=== PATIENT | female | born 1950 | race Caucasian/White ===

== ENCOUNTER 2017-03-12 19:58 | Emergency (ER) | payer BC, OTHER ==
[~2017-03-12] VITALS: Ht 167.6 cm; Wt 73.2 kg
[~2017-03-12 19:58] MED LIST: ADVAI500I PO; ALBU8I INH; AZIT250T74 PO; BENZ100 PO; DIAZ2 PO; FLUC150T PO; METO100 PO; NYST100010 PO; PRED20 PO; ROBIDMS PO; TRAM50 PO
[2017-03-12 20:23] VITALS: BP 163/83; PULSE 93; RESP 20; TEMP 98.7; O2SAT 97
[2017-03-12] MEDS ORDERED: SODIUM CHLOR 0.9% 1000 ML INJ 1,000 ML IV SCH (20:27)
[2017-03-12 20:30] VITALS: BP 89/57; PULSE 78; RESP 14; O2SAT 98
[2017-03-12] MEDS ORDERED: methylPREDNISolone SOD SUCC 125 MG/2 ML VIAL IV PUSH ONE (20:30)
[2017-03-12] MEDS ORDERED: EPINEPHrine HCL (1:1000) 1 MG/ML VIAL IM ONE (20:30)
[2017-03-12] MEDS ORDERED: SODIUM CHLORIDE 0.9% FLUSH 10 ML FLUSH IV FLUSH PRN (20:30)
--- NOTE | 2017-03-12 20:33 | PD ---
HPI Chief Complaint: Respiratory Symptoms Time Seen by Provider: 20:21 Travel History International Travel<30 days: No Contact w/Intl Traveler<30days: No Traveled to known affect area: No History of Present Illness HPI The patient is a 66-year-old female that complains complains of wheezing for one week. Last night she started having an intermittent sharp chest pain that felt like there was a pill in her throat. This morning she noticed a generalized pruritic rash over her arms and legs. The patient does have a history of asthma. She does have allergy to penicillin. The patient does have a history of PAT but apparently has no other cardiac history. PFSH Past Medical History Hx Anticoagulant Therapy: Yes (ASA 325MG DAILY) Arthritis: No Asthma: Yes Autoimmune Disease: No Blood Disorders: No Anxiety: Yes Depression: No Heart Rhythm Problems: Yes (PALPITATION, ARRHYTHMIA,SVT) Cancer: Yes (skin ca in 1994) Cardiovascular Problems: Yes High Cholesterol: Yes Chemotherapy: No Chest Pain: No Congestive Heart Failure: No COPD: No Cerebrovascular Accident: No Diabetes: No Diminished Hearing: No Endocrine: No GERD: No Genitourinary: No Hiatal Hernia: No Immune Disorder: No Kidney Stones: Yes (1999) Musculoskeletal: Yes ( MUNA. WRISTS WEAKNESS) Neurologic: No Psychiatric: No Reproductive: Yes (INFERTILITY) Respiratory: Yes Migraines: Yes Radiation Therapy: No Renal Failure: No Seizures: No Sickle Cell Disease: No Sleep Apnea: No Thyroid Disease: No Ulcer: No ?: Not LMP: 2006 Menopausal: Yes Past Surgical History Abdominal Surgery: No AICD: No Arteriovenous Shunt: No Cardiac Surgery: No Ear Surgery: No Endocrine Surgery: No Eye Surgery: No Genitourinary Surgery: No Gynecologic Surgery: No Insulin Pump: No Joint Replacement: No Oral Surgery: No Pacemaker: No Thoracic Surgery: No Other Surgery: Yes (FACE-COSMETIC) Social History Alcohol Use: Yes (1 BEER OR GLASS OF WINE DAILY) Tobacco Use: No Substance Use: No Allergies-Medications (Allergen,Severity, Reaction): Coded Allergies: ibuprofen (Verified Allergy, Severe, ANXIOUS/VIOLENT, 03/12/17) penicillin G (Verified Allergy, Severe, HIVES, 03/12/17) codeine (Verified Adverse Reaction, Severe, VOMITS, 03/12/17) Reported Meds & Prescriptions Reported Meds & Active Scripts Active Prednisone 50 Mg Tab 50 Mg PO BID Reported Prednisone 20 Mg Tab 20 Mg PO DAILY Valtrex (Valacyclovir HCl) 500 Mg Tab 500 Mg PO DAILY Valium (Diazepam) 5 Mg Tab 5 Mg PO HS PRN Ventolin Hfa 18 GM Inh (Albuterol Sulfate) 90 Mcg/Act Aer 1 Puff INH Q4H PRN Metoprolol Succinate ER 24 HR (Metoprolol Succinate) 200 Mg Tab 200 Mg PO DAILY Review of Systems Except as stated in HPI: all other systems reviewed are Neg Physical Exam Narrative GENERAL: The patient is alert, oriented 3 and slight apparent distress with her pruritic rash. SKIN: Focused skin assessment warm/dry. The patient has swelling in the hands as well as an erythematous rash on the arms and legs and trunk. HEAD: Atraumatic. Normocephalic. EYES: Pupils equal and round. No scleral icterus. No injection or drainage. ENT: No nasal bleeding or discharge. Mucous membranes pink and moist. NECK: Trachea midline. No JVD. CARDIOVASCULAR: Regular rate and rhythm. No murmur appreciated. RESPIRATORY: No accessory muscle use. Lungs show bilateral wheezes widely scattered. Breath sounds equal bilaterally. GASTROINTESTINAL: Abdomen soft, non-tender, nondistended. Hepatic and splenic margins not palpable. MUSCULOSKELETAL: No obvious deformities. No clubbing. No cyanosis. No edema. NEUROLOGICAL: Awake and alert. No obvious cranial nerve deficits. Motor grossly within normal limits. Normal speech. PSYCHIATRIC: Appropriate mood and affect; insight and judgment normal. Data Data Last Documented VS Vital Signs Date Time Temp Pulse Resp B/P (MAP) Pulse Ox O2 Delivery O2 Flow Rate FiO2 03/12/17 22:37 98 15 137/78 (97) 97 Room Air 03/12/17 20:35 2.00 03/12/17 20:23 98.7 Orders Orders Basic Metabolic Panel (Bmp) (03/12/17 20:27) Complete Blood Count With Diff (03/12/17 20:27) Ecg Monitoring (03/12/17 20:27) Iv Access Insert/Monitor (03/12/17 20:27) Oximetry (03/12/17 20:27) Methylprednisolone So Succ Inj (Solumedr (03/12/17 20:30) Albuterol-Ipratropium Neb (Duoneb Neb) (03/12/17 20:30) Sodium Chlor 0.9% 1000 Ml Inj (Ns 1000 M (03/12/17 20:27) Sodium Chloride 0.9% Flush (Ns Flush) (03/12/17 20:30) Troponin I (03/12/17 20:27) Epinephrine (1:1000) Inj (Adrenalin (1:1 (03/12/17 20:30) Electrocardiogram (03/12/17 20:09) Ct Thorax/ Chest Wo Iv Contras (03/12/17 21:40) Diphenhydramine Inj (Benadryl Inj) (03/12/17 22:45) Labs Laboratory Tests Test 03/12/17 20:15 White Blood Count 7.7 TH/MM3 Red Blood Count 4.34 MIL/MM3 Hemoglobin 14.4 GM/DL Hematocrit 41.1 % Mean Corpuscular Volume 94.7 FL Mean Corpuscular Hemoglobin 33.1 PG Mean Corpuscular Hemoglobin Concent 35.0 % Red Cell Distribution Width 12.1 % Platelet Count 234 TH/MM3 Mean Platelet Volume 9.6 FL Neutrophils (%) (Auto) 56.8 % Lymphocytes (%) (Auto) 31.6 % Monocytes (%) (Auto) 5.6 % Eosinophils (%) (Auto) 5.0 % Basophils (%) (Auto) 1.0 % Neutrophils # (Auto) 4.4 TH/MM3 Lymphocytes # (Auto) 2.4 TH/MM3 Monocytes # (Auto) 0.4 TH/MM3 Eosinophils # (Auto) 0.4 TH/MM3 Basophils # (Auto) 0.1 TH/MM3 CBC Comment DIFF FINAL Differential Comment Blood Urea Nitrogen 14 MG/DL Creatinine 0.74 MG/DL Random Glucose 91 MG/DL Calcium Level 8.8 MG/DL Sodium Level 139 MEQ/L Potassium Level 3.6 MEQ/L Chloride Level 106 MEQ/L Carbon Dioxide Level 25.4 MEQ/L Anion Gap 8 MEQ/L Estimat Glomerular Filtration Rate 79 ML/MIN Troponin I LESS THAN 0.02 NG/ML MDM Medical Decision Making Medical Screen Exam Complete: Yes Emergency Medical Condition: Yes Medical Record Reviewed: Yes Interpretation(s) The basic metabolic profile is normal except for a GFR of 79. The troponin I is normal. Differential Diagnosis Allergic reaction, acute asthma, atypical chest pain: Acute coronary syndrome- highly unlikely, electrolyte disorder, atypical chest pain, chest pain etiology undetermined Narrative Course The patient appears to have an allergic reaction. She did not want an epinephrine shot because it hurt for 6 weeks after her last epinephrine shot. She will be given a tapered course of prednisone over 8 days. It is now 9:38 PM and the patient wants a CAT scan to find out what is the cause of her chest pain. She does not have the chest pain now. The DuoNeb treatments help the wheezing and she no longer has wheezing. Diagnosis Primary Impression: Allergic reaction Additional Instructions: As we discussed, the prednisone is one tablet twice daily for 4 days followed by one tablet once daily for 4 days. Follow-up with your primary care physician. Med/Other Pt SpecificInfo: Prescription(s) given Scripts Prednisone (Prednisone) 50 Mg Tab 50 MG PO BID for X 4 days than 1 daily X 4 days, #12 TAB 0 Refills Prov: Wali Garza MD 03/12/17 Disposition: 01 DISCHARGE HOME Condition: Stable Wali Garza MD Mar 12, 2017 20:33
[2017-03-12] MEDS: RESP: ALBUTEROL 2.5 MG/IPRATROPIUM 0.5 MG NEB (SCH) INH ×3 (20:38→20:53)
[2017-03-12 21:00] LABS: AUTOMATED NEUTROPHIL # 4.4 TH/MM3 (1.8-7.7); BASOPHIL # 0.1 TH/MM3 (0-0.2); EOSINOPHIL # 0.4 TH/MM3 (0-0.4); HEMATOCRIT 41.1 % (35.0-46.0); HEMO FLAGS DIFF FINAL; LYMPH % 31.6 % (9.0-44.0); LYMPHOCYTE # 2.4 TH/MM3 (1.0-4.8); MEAN CELL VOLUME 94.7 FL (80.0-100.0); MEAN CORPUSCULAR HEMOGLOBIN 33.1 PG (27.0-34.0); MONO % 5.6 % (0.0-8.0); NEUT % 56.8 % (16.0-70.0); PLATELET COUNT 234 TH/MM3 (150-450); RED BLOOD COUNT 4.34 MIL/MM3 (4.00-5.30); RED CELL DISTRIBUTION WIDTH 12.1 % (11.6-17.2); WHITE BLOOD COUNT 7.7 TH/MM3 (4.0-11.0)
[2017-03-12 21:08] LABS: CHLORIDE 106 MEQ/L (98-107); POTASSIUM 3.6 MEQ/L (3.5-5.1); SODIUM (NA) 139 MEQ/L (136-145)
[2017-03-12 21:12] LABS: ANION GAP 8 MEQ/L (5-15); BICARBONATE 25.4 MEQ/L (21.0-32.0); BLOOD UREA NITROGEN 14 MG/DL (7-18)
[2017-03-12 21:15] LABS: GLOMERULAR FILTRATION RATE 79 ML/MIN (>89)
[2017-03-12] MEDS ORDERED: PRED20 PO (21:37)
[2017-03-12] MEDS ORDERED: VENTAER INH (21:37)
[2017-03-12] MEDS ORDERED: DIAZ5 PO (21:37)
[2017-03-12] MEDS ORDERED: METO200T3 PO (21:37)
[2017-03-12] MEDS ORDERED: VALT500T PO (21:37)
--- NOTE | 2017-03-12 22:36 | RADRPT ---
EXAM DATE/TIME: 03/12/2017 22:02 [facility] COMPARISON: No previous studies available for comparison. INDICATIONS : Chest pain. Short of breath. Rash. RADIATION DOSE: 7.46 CTDIvol (mGy) MEDICAL HISTORY : Asthma SURGICAL HISTORY : None. ENCOUNTER: Initial ACUITY: 1 day PAIN SCALE: 7/10 LOCATION: chest TECHNIQUE: Volumetric scanning of the chest was performed. Using automated exposure control and adjustment of t he mA and/or kV according to patient size, radiation dose was kept as low as reasonably achievable to obtain optimal diagnostic quality images. DICOM format image data is available electronically for r eview and comparison. Follow-up recommendations for detected pulmonary nodules are based at a minimum on nodule size and pa tient risk factors according to Fleischner Society Guidelines. FINDINGS: There is minimal dependent atelectasis in the lungs and basilar scarring. Calcified granuloma right l ower lobe. No lung consolidation. No pleural pericardial effusion. Mild coronary calcifications. Calcified right-sided hilar lymph node s. No acute bony abnormalities. CONCLUSION: 1. Minimal dependent atelectasis in the lungs. Remote granulomas disease. No acute findings. Mild cor onary calcifications. Tye Brooks MD on March 12, 2017 at 22:31 Board Certified Radiologist. This report was verified electronically.
[2017-03-12 22:37] VITALS: BP 137/78; PULSE 98; RESP 15; O2SAT 97
[2017-03-12] MEDS ORDERED: diphenhydrAMINE HCL 50 MG/ML VIAL IV PUSH ONE (22:45)
[2017-03-12] MEDS ORDERED: PRED50 PO (22:52)
[2017-03-12 23:06] VITALS: BP 137/78
--- NOTE | 2017-03-13 13:28 | EKG ---
Date Performed: 03/12/2017 Time Performed: 20:09:00 PTAGE: 66 years EKG: Sinus rhythm POSSIBLE LEFT ATRIAL ENLARGEMENT BORDERLINE ECG INTERPRETATION BASED ON A DEFAULT AGE OF 40 YEARS NO PREVIOUS TRACING DOCTOR: Stacy Edwards Interpretating Date/Time 03/13/2017 13:27:38
== END 2017-03-12 23:16 | disposition home or self-care (01) ==
LOC: PHED 19:58
DX: T78.40XA Allergy, unspecified, initial encounter (principal); R06.2 Wheezing; R07.9 Chest pain, unspecified; R21 Rash and other nonspecific skin eruption; L29.9 Pruritus, unspecified; R94.31 Abnormal electrocardiogram [ECG] [EKG]; E78.00 Pure hypercholesterolemia, unspecified; X58.XXXA Exposure to other specified factors, initial encounter; Z79.82 Long term (current) use of aspirin; Z87.09 Personal history of other diseases of the respiratory system; Z86.59 Personal history of other mental and behavioral disorders; Z86.79 Personal history of other diseases of the circulatory system; Z87.442 Personal history of urinary calculi; Z87.39 Personal history of other diseases of the musculoskeletal system and connective tissue; Z86.69 Personal history of other diseases of the nervous system and sense organs
CPT/HCPCS: 71250; 80048; 84484; 85025; 93005; 94640; 94664; 96361; 96374; 96375; 99285; J1200; J2930; J7030